=== PATIENT | female | born 1970 | race Caucasian/White ===

== ENCOUNTER 2022-07-07 02:59 | Emergency (ER) | payer MEDICAID ==
[~2022-07-07] VITALS: Ht 165.1 cm; Wt 84.8 kg
[2022-07-07] MEDS ORDERED: ONDANSETRON HCL/PF 4 MG/2 ML VIAL ONE (03:23)
[2022-07-07] MEDS ORDERED: MORPHINE SULFATE INJ 4 MG/ML DISP.SYRIN ONE (03:23)
[2022-07-07] MEDS ORDERED: MORPHINE SULFATE INJ 2 MG/ML DISP.SYRIN IV ONE (03:30)
[2022-07-07] MEDS ORDERED: ONDANSETRON HCL/PF 4 MG/2 ML VIAL IVP ONE (03:30)
[2022-07-07] MEDS ORDERED: IV NS 0.9% 1,000 ML BAG IV ONE (03:30)
--- NOTE | 2022-07-07 03:52 | NUR ---
patient bibdaughter c/o abd pain and nausea vomiting and diarrhea x 2 weeks, last chemo 2 weeks ago. Kept comfortable, connected to the monitor and pulse ox. Kept comfortable, will continue to monitor accordingly.
[2022-07-07 04:02] LABS: BASOPHILS # (AUTO) 0.1 K/uL (0.0-0.2); BASOPHILS % (AUTO) 0.3 % (0.0-2.0); HEMATOCRIT 43 % (33-45); LYMPHOCYTES % (AUTO) 10.3 % (20.0-44.0); MEAN CORPUSCULAR HGB CONC 33 g/dl (31.0-36.0); MEAN CORPUSCULAR VOLUME 88 fL (82-100); MONOCYTES # (AUTO) 0.5 K/uL (0.1-1.30); MONOCYTES % (AUTO) 2.5 % (2.0-12.0); NEUTROPHILS % (AUTO) 86.9 % (43.0-81.0); PLATELET COUNT (AUTO) 168 K/uL (150-450); RED BLOOD CELL COUNT(AUTO) 4.82 MIL/uL (4.0-5.2); WHITE BLOOD COUNT (AUTO) 19.5 K/uL (4.3-11.0)
[2022-07-07 04:10] LABS: CALCIUM, SERUM 9.7 mg/dL (8.5-10.1); CREATININE 0.9 mg/dL (0.6-1.3); POTASSIUM 3.7 mmol/L (3.5-5.1)
[2022-07-07 04:16] LABS: ALBUMIN 4.3 g/dL (3.4-5.0); BILIRUBIN,DIRECT 0.1 mg/dL (0.0-0.2); BILIRUBIN,TOTAL 0.2 mg/dL (0.2-1.0)
[2022-07-07] MEDS ORDERED: OXYC-128 PO (04:55)
[2022-07-07] MEDS ORDERED: ONDA4TAB11 PO (04:55)
[2022-07-07 05:11] VITALS: BP 118/77
--- NOTE | 2022-07-07 05:12 | NUR ---
Patient discharged to home in stable condition. Written and verbal after care instructions given. Patient verbalizes understanding of instruction.IV removed. Catheter intact and site benign. Pressure and 4x4 applied to site. No bleeding noted.
== END 2022-07-07 05:12 | disposition home or self-care (01) ==
LOC: ER 03:12
DX: K52.9 Noninfective gastroenteritis and colitis, unspecified (principal); C50.919 Malignant neoplasm of unspecified site of unspecified female breast
CPT/HCPCS: 99284; 96374; 96361; 96375; 85025; 80048; 83690; 80076; 36415; J2270; J2405; J7030

== ENCOUNTER 2024-01-28 22:48 | Emergency (ER) | payer MEDICAID ==
[~2024-01-28] VITALS: Ht 165.1 cm; Wt 69.9 kg
[~2024-01-28 22:48] MED LIST: ONDA4TAB11 PO; OXYC-128 PO
[2024-01-28 22:56] VITALS: TEMP 98.4
[2024-01-28] MEDS ORDERED: ONDANSETRON HCL/PF 4 MG/2 ML VIAL ONE (23:31)
[2024-01-28] MEDS ORDERED: MORPHINE SULFATE INJ 4 MG/ML DISP.SYRIN ONE (23:31)
[2024-01-28] MEDS: MORPHINE SULFATE INJ 2 MG/ML DISP.SYRIN IV ONE (23:39)
[2024-01-28] MEDS: IV NS 0.9% 1,000 ML IV ONE (23:39)
[2024-01-28] MEDS: ONDANSETRON HCL/PF - ER 4 MG/2 ML VIAL IV ONE (23:39)
[2024-01-28 23:55] LABS: BASOPHILS % (AUTO) 0.9 % (0.0-2.0); EOSINOPHILS # (AUTO) 0.1 K/uL (0.0-0.7); EOSINOPHILS % (AUTO) 1.6 % (0.0-6.0); HEMATOCRIT 37 % (33-45); HEMOGLOBIN 12.9 g/dL (11.5-14.8); LYMPHOCYTES # (AUTO) 2.2 K/uL (0.8-4.8); LYMPHOCYTES % (AUTO) 42.2 % (20.0-44.0); MEAN CORPUSCULAR HEMOGLOBIN 30 PG (26.0-33.0); MEAN CORPUSCULAR HGB CONC 35 g/dl (31.0-36.0); MEAN CORPUSCULAR VOLUME 88 fL (82-100); MONOCYTES # (AUTO) 0.4 K/uL (0.1-1.30); MONOCYTES % (AUTO) 7.8 % (2.0-12.0); NEUTROPHILS # (AUTO) 2.5 K/uL (1.8-8.9); NEUTROPHILS % (AUTO) 47.5 % (43.0-81.0); PLATELET COUNT (AUTO) 186 K/uL (150-450); RED BLOOD CELL COUNT(AUTO) 4.27 MIL/uL (4.0-5.2); RED CELL DISTRIBUTION WIDTH 14.9 % (11.5-15.0); WHITE BLOOD COUNT (AUTO) 5.3 K/uL (4.3-11.0)
[2024-01-29 00:19] LABS: ALBUMIN 3.3 g/dL (3.4-5.0); BILIRUBIN,TOTAL 0.3 mg/dL (0.2-1.0); CREATININE 0.5 mg/dL (0.6-1.3); LACTIC ACID 0.9 mmol/L (0.4-2.0); POTASSIUM 3.5 mmol/L (3.5-5.1); TOTAL PROTEIN, SERUM 6.9 g/dL (6.4-8.2)
[2024-01-29 00:28] LABS: APPEARANCE,URINE CLEAR (CLEAR); BILIRUBIN,URINE NEGATIVE (NEGATIVE); BLOOD, URINE NEGATIVE Ery/uL (NEGATIVE); COLOR,URINE YELLOW (YELLOW); KETONES,URINE NEGATIVE (NEGATIVE); LEUKOCYTE ESTERASE ,URINE NEGATIVE (NEGATIVE); NITRITE, URINE NEGATIVE (NEGATIVE); PH,URINE 6.5 (5.0-8.0); PROTEIN,URINE NEGATIVE (NEGATIVE); UGLUCOSE NEGATIVE (NEGATIVE); UROBILINOGEN,URINE 0.2 EU/dL (0.2)
[2024-01-29] MEDS ORDERED: diphenhydrAMINE HCL 50 MG/ML VIAL ONE (01:00)
[2024-01-29] MEDS ORDERED: ONDANSETRON HCL/PF 4 MG/2 ML VIAL ONE (01:00)
[2024-01-29] MEDS ORDERED: HYDROMORPHONE 1 MG/1 ML DISP.SYRIN ONE (01:00)
[2024-01-29] MEDS: HYDROMORPHONE 1 MG/1 ML DISP.SYRIN IV ONE (01:07)
[2024-01-29] MEDS: diphenhydrAMINE HCL 50 MG/ML VIAL IV ONE (01:07)
[2024-01-29] MEDS: ONDANSETRON HCL/PF - ER 4 MG/2 ML VIAL IV ONE (01:07)
[2024-01-29] MEDS ORDERED: NAPR-1009 PO (01:47)
[2024-01-29 02:39] VITALS: BP 144/79; O2SAT 98
== END 2024-01-29 02:39 | disposition home or self-care (01) ==
LOC: ER 22:54
DX: R10.31 Right lower quadrant pain (principal); R11.0 Nausea; Z85.3 Personal history of malignant neoplasm of breast; Z90.12 Acquired absence of left breast and nipple
CPT/HCPCS: 99285; 74176; 96374; 96361; 96375 ×3; 85025; 83605; 83690; 81003; 36415; 80053; 96376; J2270; J2405 ×4; J7030; J1200; J1170